=== PATIENT | female | born 1960 | race Caucasian/White ===

== ENCOUNTER 2020-03-16 13:28 | Emergency (ER) | payer OTHER, MEDICARE, SELFPAY ==
[2020-03-16] VITALS (7 sets, daily range): BP systolic 93–145; BP diastolic 70–85; PULSE 70–103; RESP 16–19; TEMP 35.5–37.2; O2SAT 98–100; BMI 19.6
--- NOTE | 2020-03-16 14:15 | EKG12_ITS ---
Test Reason : SOB Blood Pressure : / mmHG Vent. Rate : 079 BPM Atrial Rate : 079 BPM P-R Int : 158 ms QRS Dur : 082 ms QT Int : 352 ms P-R-T Axes : 067 055 053 degrees QTc Int : 403 ms Normal sinus rhythm Normal ECG Confirmed by GLORIA DALLAS, BRIAN ([id number]), editor city JACINDA KIDD ([id number]) on 03/18/2020 11:13:01 AM Referred By: HERB Confirmed By:BRIAN CASTRO MD
--- NOTE | 2020-03-16 14:16 | CT_ITS ---
STUDY: CTA CHEST REASON FOR EXAM: Female, 59 years old. SUSPECTED PE, SOB RADIATION DOSAGE (If Supplied By Facility): CTDIvol = ( 3.73 ) mGy, DLP = ( 116.65 ) mGycm TECHNIQUE: The examination was performed with the intravenous administration of IV 100mL Isovue-370. Post-processing of the angiographic images was performed, with multiplanar reformation and 3D reconstruction. Individualized dose optimization techniques were used for this CT. COMPARISON: None. FINDINGS: Normal enhancement of the main pulmonary artery and right and left pulmonary arteries. Normal enhancement of the bilateral peripheral pulmonary arteries. There is no demonstrated pulmonary embolism. Normal thoracic aorta and visualized great vessels. There is no demonstrated aortic dissection. Normal heart size. A small anterior pericardial effusion is present. Small calcified mediastinal and hilar lymph nodes are present. Normal visualized trachea and bronchi. The lungs are well expanded. Normal pulmonary parenchyma. No consolidation or pulmonary edema or pleural effusion. Normal pleura. Normal chest wall structures. There are degenerative changes of thoracic spine. Gastric bypass changes as well as stomach sports physical therapist/balloon noted. CT/CTA Chest W/WO Contrast IMPRESSION: 1. No demonstrated pulmonary embolism or arterial dissection. 2. No consolidation or pulmonary edema or pleural effusion. Electronically Signed: Josemanuel Ibrahim MD at 17:54 EST , Service support ,
[2020-03-16 14:43] LABS: Anion Gap 8 (5-15); BUN 16 mg/dL (7-18); BUN/Creat Ratio 8.6 RATIO (10-20); Calcium,Total 9.7 mg/dL (8.5-10.1); Chloride 106 mmol/L (98-107); Creatinine, Serum 1.85 mg/dL (0.55-1.02); EST Glomerular Filtration Rate 29 mL/min (>60); Est Glom Filt Rate - Afr Amer 36 mL/min (>60); Estimated Creatinine Clearance 26.21 ml/min; Glucose 105 mg/dL (74-106); Potassium 4.2 mmol/L (3.5-5.1); Sodium Level 140 mmol/L (136-145)
[2020-03-16 14:52] LABS: BNP,B-Type NATRIURETIC PEPTIDE 26.4 pg/mL (0-100)
--- NOTE | 2020-03-16 14:55 | RAD_ITS ---
STUDY: X-RAY CHEST REASON FOR EXAM: Female, 59 years old. Dyspnea on exertion, Hx pancreatic CA TECHNIQUE: PA and lateral views of the chest. COMPARISON: None. FINDINGS: EKG electrodes are seen. Hyperinflation. Calcified granulomas in the lingular segment of the left upper lobe. There is no demonstrated pleural abnormality. Normal size heart. Normal mediastinum and lars. Normal visualized pulmonary arteries. Normal visualized aortic arch and descending thoracic aorta. There are mild degenerative changes of the visualized thoracic spine. Normal visualized ribs, clavicles, and shoulders. Surgical clips are seen in the right upper quadrant. A stent is seen in the left upper quadrant. RAD/Chest PA and Lateral IMPRESSION: Hyperinflation. The lungs are clear. Electronically Signed: Hossein Costa MD at 15:28 EST , Service support ,
--- NOTE | 2020-03-16 15:47 | ED.DCSUM_ITS ---
History of Present Illness Chief Complaint: Shortness of Breath Informant: Patient, PCP - Patient's oncologist called and raise concern for pulmonary embolus Onset: Days Context: Sudden Onset Timing: Continuous Quality: Dyspnea with exertion Location: Respiratory Current Severity: Mild Maximum Severity: Moderate Worsened by: Activity Relieved by: Rest Associated Symptoms: No other symptoms Narrative: Patient is 59-year-old woman with history of pancreatic cancer who had surgery February 17 and developed a bowel obstruction requiring emergent surgery February 26. She presents because of dyspnea, dyspnea on exertion and chest pain with pleuritic component. She does not prior history of VTE. She denies infectious symptoms i.e. fever, chills night sweats. She denies runny nose, congestion, postnasal drainage or sore throat. She denies cough. She denies nausea, vomiting or diarrhea. She denies dysuria, frequency, urgency or hematuria. She does report swelling of her lower extremities. There is no discoloration or pain. Prior similar symptoms: Yes - VTE Recent Illness/Hospitalization: Yes - Pancreatic resection for cancer complicated by obstruction - Past Medical History (1) Pancreatic cancer Status: Acute (2) Bowel obstruction Status: Acute (3) History of venous thromboembolism Status: Acute Past Medical History - Allergies and Home Meds Allergies/Adverse Reactions: Allergies benzonatate [From Tessalon Perles] Allergy (Verified 03/16/20 13:31) Anaphylaxis lisinopril Allergy (Verified 03/16/20 13:31) Anaphylaxis Prior records reviewed: Yes Surgical History: - - Pancreatic resection, splenectomy and bowel resection Lives: Alone Smoking Status: Never smoker Alcohol: None Drugs: None Review of Systems General: Reports: Malaise, Weight loss. Denies: Chills, Fever, Sweats Eyes: Denies: Visual changes - bilaterally, Blurred Vision - bilaterally ENT: Denies: Bilateral ear pain, Rhinorrhea, Sore throat Cardiovascular: Reports: Chest pain. Denies: Palpitations, Heart racing Respiratory: Reports: Dyspnea, Dyspnea on exertion. Denies: Sputum, Orthopnea, Paroxysmal nocturnal dyspnea Gastrointestinal: Denies: Abdominal pain, Nausea, Vomiting, Diarrhea, Melena, Hematochezia Genitourinary: Denies: Dysuria, Hematuria, Frequency Musculoskeletal: Denies: Myalgias, Back pain, Extremity Pain Skin: Denies: Rash, Wounds Neurological: Denies: Headache, Parasthesia, Numbness Psych: Denies: Depression, Anxiety Endocrine: Denies: Polyuria, Polydipsia Hematologic: Denies: Easy bruising, Easy bleeding Allergy: Denies: Uticaria Physical Exam Vital Signs/Narrative: Vital Signs Temp Pulse Resp BP Pulse Ox 03/16/20 14:37 98.1 F 70 16 104/74 100 03/16/20 13:37 96 F L 103 H 16 102/70 100 03/16/20 13:31 96 F L 103 H 16 102/70 100 Inital Vital Signs reviewed: Yes General: Well nourished, Well developed, Obese, No Acute Distress Head: Normocephalic, Atraumatic Eyes: Perrl, EOMI. Negative for: Pale conjunctiva, Scleral icterus ENT: Moist mucous membranes, No rhinorrhea, TM's clear Neck: Supple, Nontender, No lymphadenopathy, No JVD Cardiovascular: Regular rate, Regular rhythm, No murmurs, Normal S1 Respiratory: No distress, CTA bilaterally, Chest nontender Abdomen: Soft, Nontender, Nondistended, Normal bowel sounds Back: Nontender, Normal Inspection Extremities: Nontender, Edema Skin: No rash, Pallor. Negative for: Cyanosis, Diaphoresis, Jaundice, No Trauma Neurological: Alert, Oriented x3, Cranial nerves II-XII grossly intact, Normal Strength Psychological: Normal affect Diagnostic/Tx/Re-eval Chest X-Ray - ED: 2 View, Read by ED Physician, Normal, Heart, Mediastinum, Bony Structures, No Acute Disease, Chronic Changes, - - No evidence of infiltrate, effusion on x-ray interpreted by me at 1436. Impressions Chest CTA 03/16/20 14:16 IMPRESSION: 1. No demonstrated pulmonary embolism or arterial dissection. 2. No consolidation or pulmonary edema or pleural effusion. Electronically Signed: Josemanuel Ibrahim MD at 17:54 EST , Service support , Chest X-Ray 03/16/20 14:55 IMPRESSION: Hyperinflation. The lungs are clear. Electronically Signed: Hossein Costa MD at 15:28 EST , Service support , 03/16/20 14:16 CTA Chest W/WO Contrast [CT] Stat 03/16/20 14:55 Chest PA and Lateral [RAD] Stat Laboratory Results 03/16/20 03/16/20 14:00 14:00 Sodium 140 Potassium 4.2 Chloride 106 Carbon Dioxide 26.0 Anion Gap 8 BUN 16 Creatinine 1.85 H Estim Creat Clear Calc 26.21 Est GFR (MDRD) Af Amer 36 L Est GFR (MDRD) Non-Af 29 L BUN/Creatinine Ratio 8.6 L Glucose 105 Calcium 9.7 Troponin I < 0.015 B-Natriuretic Peptide 26.4 - EKG Initial EKG Interpretation: Sinus Rhythm - Normal sinus rhythm with a ventricular to 79. UT interval is 158 ms. QRS duration 82 ms. QT duration 3 to 52 ms. [place] is normal. EKG is normal. - Medical Decision Making Patient presents with dyspnea. Chest x-ray reveals no obvious abnormality need to rule out pulmonary embolus. She is high pretest probability. Creatinine is elevated 1.85. This is higher than time of discharge. Her hemoglobin time discharge 11.4. Her hemoglobin today at Dr. Guan's office is 11.4. This would not explain her dyspnea. Need to rule out pulmonary embolus. Troponin was obtained and is normal. There is no evidence of heart failure. Suspect the dyspnea is due to deconditioning due to recent surgeries and hospitalization. ED Disposition - Plan for ED Patient: Disposition: Home or Assisted Living Diagnosis: Dyspnea on exertion, Pancreatic cancer, Recurrent intestinal obstruction Instructions: ED Dyspnea Referrals: Damian Hermosillo MD [Primary Care Provider] - As Needed Waylon Guan DO [STAFF PHYSICIAN] - Keep Ya appointment
== END 2020-03-16 18:15 | disposition home or self-care (01) ==
PROVIDERS: Emergency Provider Emergency Medicine; PCP Family Medicine
DX: R06.09 Other forms of dyspnea (principal); K56.609 Unspecified intestinal obstruction, unspecified as to partial versus complete obstruction; C25.9 Malignant neoplasm of pancreas, unspecified; E66.9 Obesity, unspecified; Z86.718 Personal history of other venous thrombosis and embolism
CPT/HCPCS: 71046; 71275; 80048; 83880; 84484; 93005; 96360; 96361; 99284; J7030; Q9967; A4216

== ENCOUNTER → 2021-02-17 08:41 | Outpatient (CLI) | payer OTHER, MEDICARE, SELFPAY ==
[2021-02-17 08:55] VITALS: BP 112/72; PULSE 82; RESP 16; TEMP 36.1; O2SAT 98; BMI 18.8
[2021-02-17] MEDS: 0.9% NaCl Peripheral Flush Adult/Peds IV ×2 (09:08→13:50)
[2021-02-17 09:23] VITALS: BP 113/74; PULSE 80; RESP 16; TEMP 36.1
[2021-02-17 10:23] VITALS: BP 141/84; PULSE 72; RESP 16; TEMP 36.2
[2021-02-17 10:56] VITALS: BP 139/86; PULSE 72; RESP 16; TEMP 36.2; O2SAT 99
[2021-02-17] MEDS: Furosemide 20 MG/2 ML VIAL IV (11:26)
[2021-02-17 12:04] VITALS: BP 136/88; PULSE 75; RESP 16; TEMP 36.3; O2SAT 98
[2021-02-17 13:01] VITALS: BP 146/87; PULSE 70; RESP 16; TEMP 36.3
== END ==
PROVIDERS: PCP Family Medicine; Referring Provider Internal Medicine Hematology & Oncology; Visit Provider Internal Medicine Hematology & Oncology
DX: Z51.89 Encounter for other specified aftercare (principal); C25.2 Malignant neoplasm of tail of pancreas
CPT/HCPCS: 36430; 86644; 86850; 86900; 86901; 86920; 86922; J7040; P9016; P9040; A4216; J1940

== ENCOUNTER 2021-03-17 11:24 | Outpatient (CLI) | payer BC, MEDICARE, SELFPAY ==
[2021-03-17] MEDS: 0.9% NaCl VAD Flush IV ×2 (11:53→14:29)
[2021-03-17 11:55] VITALS: BP 103/72; PULSE 98; RESP 16; TEMP 36.3; O2SAT 100; BMI 17.5
[2021-03-17 12:35] VITALS: BP 108/76; PULSE 87; RESP 16; TEMP 36.4; O2SAT 98
[2021-03-17 13:38] VITALS: BP 118/76; PULSE 80; RESP 16; TEMP 36.8; O2SAT 100
[2021-03-17 14:10] VITALS: BP 127/79; PULSE 80; RESP 16; TEMP 36.5; O2SAT 99
[2021-03-17] MEDS: Furosemide 20 MG/2 ML VIAL IV (14:25)
== END 2021-03-17 23:59 | disposition short-term general hospital (02) ==
PROVIDERS: PCP Family Medicine; Referring Provider Internal Medicine Hematology & Oncology; Visit Provider Internal Medicine Hematology & Oncology
DX: Z51.89 Encounter for other specified aftercare (principal); D64.81 Anemia due to antineoplastic chemotherapy
CPT/HCPCS: 36430; 86850; 86900; 86901; 86920; 86922; J7040; P9016; A4216; J1940

== ENCOUNTER 2021-04-15 09:12 | Outpatient (CLI) | payer BC, MEDICARE, SELFPAY ==
[2021-04-15 09:23] VITALS: BP 107/75; PULSE 93; RESP 16; TEMP 36.3; O2SAT 100
[2021-04-15 09:59] VITALS: BP 112/71; PULSE 89; RESP 16; TEMP 35.8; O2SAT 100
[2021-04-15 10:54] VITALS: BP 130/81; PULSE 82; RESP 16; TEMP 36.6
[2021-04-15 11:38] VITALS: BP 132/79; PULSE 73; RESP 16; TEMP 36.6
[2021-04-15] MEDS: Furosemide 20 MG/2 ML VIAL IV (11:58)
[2021-04-15 12:30] VITALS: BP 122/80; BP 136/80; PULSE 78; PULSE 85; RESP 16; TEMP 35.7; TEMP 35.8; O2SAT 100; O2SAT 99
[2021-04-15 13:30] VITALS: BP 136/78; PULSE 80; RESP 16; TEMP 36.6; O2SAT 99
== END 2021-04-15 23:59 | disposition home or self-care (01) ==
LOC: MEDOUTP 09:12
PROVIDERS: PCP Family Medicine; Referring Provider Internal Medicine Hematology & Oncology; Visit Provider Internal Medicine Hematology & Oncology
DX: Z51.89 Encounter for other specified aftercare (principal)
CPT/HCPCS: 36430; 86850; 86900; 86901; 86920; 86922; J7040; P9016; A4216; J1940

== ENCOUNTER 2021-04-19 12:13 | Inpatient (IN) | payer BC, MEDICARE, SELFPAY ==
[2021-04-19 12:13] VITALS: BP 114/79; PULSE 125; RESP 14; TEMP 36.1; O2SAT 98; BMI 17.2
--- NOTE | 2021-04-19 12:42 | EX.ED.DYSGE1 ---
HPI History of Present Illness Chief Complaint: General Illness Informant: patient and spouse/S.O. Onset/Context/Timing Onset: Days (3-4) Context: Gradual Onset Timing: Continuous Quality: malaise, feeling dehydrated Location: all over Current Severity: Moderate Maximum Severity: Moderate Worsened by: nothing Relieved by: nothing Associated Symptoms Associated Symptoms: poor appetite & po intake. nausea, dry heaves, mild nonbloody diarrhea. Narrative Narrative: Patient has pancreatic cancer, she had a remote Whipple/pancreatic surgery that involved part of her colon as well. She had some chemotherapy last year but then on reevaluation she had a metastasis show up on her abdominal wall so now she is about 3 weeks into more aggressive chemotherapy regimen. She is feeling very fatigued and malaised. She was seen in the infusion center last week and had 2 units of blood transfused. Her appetite is extremely poor and her fluid intake is admittedly poor, and she was sent here for fluids due to likely being dehydrated according to the patient. She denies any pain and denies any new symptoms. She has a port in her right upper arm. She does not have a PEG, colostomy, or any other hardware. [facility] Medical History (Updated 04/19/21 @ 17:[address] Elmo Gentile MD) Bowel obstruction History of venous thromboembolism Pancreatic cancer Home Medications insulin glargine [Lantus Solostar U-100 Insulin] 11 unit SUBCUT QHS PRN PRN 04/19/21 [History Last Taken Unknown] mirtazapine 15 mg PO QHS 04/19/21 [History Last Taken Unknown] oxycodone 5 mg PO Q4H PRN PRN 04/19/21 [History Last Taken Unknown] pantoprazole 40 mg PO DAILY 04/19/21 [History Last Taken Unknown] pravastatin 20 mg PO QHS 04/19/21 [History Last Taken Unknown] Allergy/AdvReac Type Severity Reaction Status Date / Time benzonatate Allergy Anaphylaxis Verified 04/19/21 12:15 [From Terrie Rollins] lisinopril Allergy Anaphylaxis Verified 04/19/21 12:15 Surgical History Hx of cholecystectomy Hx of gastric bypass Hx of hysterectomy Hx of tonsillectomy Social History Smoking Status: Never smoker ROS ROS ED Constitutional Constitutional ED: Reports fatigue and malaise; Denies chills or fever(s) Eyes Eyes: Denies change in vision or diplopia ENT ENT ED: Denies rhinorrhea or sore throat Cardiovascular Cardiovascular: Denies chest pain or palpitations Respiratory/Chest Respiratory/Chest: Denies cough or dyspnea Gastrointestinal Gastrointestinal: Reports diarrhea, nausea and vomiting; Denies abdominal pain Genitourinary Genitourinary ED: Denies dysuria or hematuria Musculoskeletal Musculoskeletal: Denies back pain or neck pain Integumentary Denies abscess or rash Neurologic Neurologic: Denies headache(s), paresthesias or weakness Psychiatric Psychiatric: Denies anxiety or suicidal thoughts EXAM Physical Exam Const Vital Signs: 04/19/21 12:13 04/19/21 12:37 04/19/21 13:21 Temperature 97.0 F L Temperature Source Temporal Pulse Rate 125 H 102 H Respiratory Rate 14 Respiratory Effort Normal Non-Labored Respiratory Pattern Normal Blood Pressure 114/79 120/81 H Blood Pressure Mean 90 94 Pulse Ox 98 99 Oxygen Delivery Method Room Air Room Air 04/19/21 15:05 04/19/21 17:07 Temperature Temperature Source Pulse Rate 66 Respiratory Rate 20 H Respiratory Effort Respiratory Pattern Blood Pressure 133/89 H 128/84 H Blood Pressure Mean 103 98 Pulse Ox 95 99 Oxygen Delivery Method Room Air Room Air Positive well nourished and well developed Constitutional Narrative: Malaised-appearing, NAD General Appearance ED: well developed and NAD HEENT Reports moist mucous membranes normocephalic and atraumatic Eyes PERRL and EOMs intact bilaterally Neck full ROM and supple Resp normal respiratory effort and clear to auscultation bilaterally Cardio regular rate, regular rhythm and no murmurs GI non-tender and non-distended Auscultation: normoactive bowel sounds Palpation: soft Back/Spine no CVA tenderness General Back: other FROM Extremity normal to inspection Extremity Narrative: Prominence of Mediport seen medial right upper arm, nontender no signs of infection or lesions on the skin overlying it General Extremety ED: Negative for edema, pulses abnormal or tenderness General Extremity: Negative for edema or pulses abnormal Neuro oriented x3, CN's II-XII intact bilaterally and no sensory deficits noted Sensorium / Orientation: awake and alert Motor Exam: strength 5/5 throughout Skin no rashes or lesions noted and no wounds MDM MDM MDM Narrative Medical decision making narrative: Labs show DAWOOD with mild hyperkalemia likely as a result. EKG showed no changes of hyperkalemia. She was given IV fluids 1.5 L total, and the BMP was repeated. It shows mild improvement of these numbers, her potassium came down to the normal range at 5.0. I discussed all this with her oncologist Dr. Guan, he states the infusion center is no availability today, and he does not think there is any availability tomorrow and request that we admit the patient for the dehydration and borderline uremia. Patient is amenable to that. Discussed with hospitalist. Lab Data Attestation: I reviewed the patient's lab results. Labs: Laboratory Results - last 24 hr 04/19/21 04/19/21 04/19/21 13:23 13:23 16:20 WBC 5.9 RBC 2.56 L Hgb 8.3 L Hct 25.2 L MCV 98.4 MCH 32.4 H MCHC 32.9 RDW Std Deviation 67.4 H RDW Coeff of Brittni 19.0 H Plt Count 180 MPV 10.5 Immature Gran % (Auto) 0.700 Neut % (Auto) 91.0 H Lymph % (Auto) 3.6 L [place] % (Auto) 3.7 Eos % (Auto) 0.3 Baso % (Auto) 0.7 Absolute Neuts (auto) 5.4 Absolute Lymphs (auto) 0.21 L Nucleated RBC % 2.9 Anisocytosis 1+ Macrocytosis 1+ [place] Bodies 1+ Sodium 138 140 Potassium 5.2 H 5.0 Chloride 113 H 117 H Carbon Dioxide 16.0 L 17.0 L Anion Gap 9 6 BUN 93 H 87 H Creatinine 2.39 H 2.19 H Estim Creat Clear Calc 17.48 19.07 Est GFR (MDRD) Af Amer 26 L 29 L Est GFR (MDRD) Non-Af 22 L 24 L BUN/Creatinine Ratio 38.9 H 39.7 H Glucose 219 H 203 H Calcium 8.2 L 7.8 L EKG Initial EKG: Attestation: I personally reviewed and interpreted this EKG as follows: Interpretation: Sinus Rhythm, No Acute Injury Pattern and Non-Specific ST Changes (Flattening T-waves) Discharge Plan Dx/Rx/DC Orders Clinical Impression: Acute kidney injury, Pancreatic cancer, Acute dehydration Disposition Disposition: Acute Care Hospital [facility]
[2021-04-19 13:21] VITALS: BP 120/81; PULSE 102; O2SAT 99
[2021-04-19] MEDS: Ondansetron 4 MG/2 ML Vial IV ×2 (13:22→22:14)
[2021-04-19] MEDS: 0.9% Normal Saline 1,000 ML 999 ML IV (13:22)
[2021-04-19 13:30] LABS: Absolute Lymphocyte Count 0.21 X10^3/uL (0.83-4.51); Absolute Neutrophil Count 5.4 X10^3/uL (2.0-7.7); Basophil# 0.04 X10^3/uL; Basophil% 0.7 % (0-1); Eosinophil# 0.02 X10^3/uL; Eosinophils% 0.3 % (0-5); Hematocrit 25.2 % (37-47); Hemoglobin 8.3 g/dL (12.0-15.0); Lymphocyte # 0.21 X10^3/ul (0.83-4.51); Lymphocyte % 3.6 % (19-41); Mean Corp Hgb Conc 32.9 g/dL (32-36); Mean Corpuscular Hgb 32.4 pg (27.0-32.0); Mean Corpuscular Volume 98.4 fL (81-99); Mean Platelet Vol. 10.5 fl (6.2-12.0); Monocyte# 0.22 X10^3/uL; Monocyte% 3.7 % (0-10); NRBC Flagged by Analyzer 2.9 % (0-5); Neutrophil # 5.38 X10^3/uL (2.7-7.7); POSITIVE DIFFERENTIAL YES; POSITIVE MORPHOLOGY YES; Platelet Count 180 K/mm3 (150-450); RBC Distribution Width SD 67.4 fl (35.1-43.9); Red Blood Count 2.56 M/mm3 (4.2-5.4); White Blood Count 5.9 K/mm3 (4.4-11.0)
[2021-04-19 13:40] LABS: Anion Gap 9 (5-15); BUN 93 mg/dL (7-18); BUN/Creat Ratio 38.9 RATIO (10-20); Calcium,Total 8.2 mg/dL (8.5-10.1); Chloride 113 mmol/L (98-107); Creatinine, Serum 2.39 mg/dL (0.55-1.02); EST Glomerular Filtration Rate 22 mL/min (>60); Est Glom Filt Rate - Afr Amer 26 mL/min (>60); Estimated Creatinine Clearance 17.48 ml/min; Glucose 219 mg/dL (74-106); Potassium 5.2 mmol/L (3.5-5.1); Sodium Level 138 mmol/L (136-145)
[2021-04-19 14:04] LABS: Differential Indicated SCAN CRITERIA MET
[2021-04-19 14:08] LABS: Howell-Jolly Body 1+
[2021-04-19 14:09] LABS: Anisocytosis 1+; Macrocytosis 1+
--- NOTE | 2021-04-19 14:28 | EKG12_ITS ---
Test Reason : GEN ILLNESS Blood Pressure : / mmHG Vent. Rate : 089 BPM Atrial Rate : 089 BPM P-R Int : 150 ms QRS Dur : 074 ms QT Int : 342 ms P-R-T Axes : 074 018 081 degrees QTc Int : 416 ms Normal sinus rhythm Low voltage QRS Nonspecific T wave abnormality Abnormal ECG Confirmed by DIOR DALLAS, CHRISTOFER ([id number]), assignment editor MARKEL GRIGGS ([id number]) on 04/22/2021 1:23:49 PM Referred By: RIMA Confirmed By:CHRISTOFER RADER MD
[2021-04-19 15:05] VITALS: BP 133/89; PULSE 66; RESP 20; O2SAT 95
[2021-04-19 16:39] LABS: Anion Gap 6 (5-15); BUN 87 mg/dL (7-18); BUN/Creat Ratio 39.7 RATIO (10-20); Calcium,Total 7.8 mg/dL (8.5-10.1); Chloride 117 mmol/L (98-107); Creatinine, Serum 2.19 mg/dL (0.55-1.02); EST Glomerular Filtration Rate 24 mL/min (>60); Est Glom Filt Rate - Afr Amer 29 mL/min (>60); Estimated Creatinine Clearance 19.07 ml/min; Glucose 203 mg/dL (74-106); Sodium Level 140 mmol/L (136-145)
[2021-04-19 17:07] VITALS: BP 128/84; O2SAT 99
[2021-04-19 17:36] VITALS: BP 128/84; PULSE 96; RESP 14; TEMP 36.6; O2SAT 98
--- NOTE | 2021-04-19 17:44 | HP.PCM.HOS_ITS ---
Documented by User: Carlee Quintana NP, RIBBING MACHINE OPERATOR-C 04/19/21 18:07 HPI - General HPI Narrative LUZ MARIA SAUCEDO, is a 60 F who presents to the emergency room due to weakness, nausea. She reports poor oral intake, decreased urine output and recent weight loss. Patient states she began a new treatment regimen for pancreatic cancer about 3 weeks ago and has had worsening fatigue and malaise since that time. She reports she is having difficulty keeping food down. She denies fever, chills. Denies shortness of breath. Denies diarrhea. Denies urinary symptoms. Patient states a few days ago she stood up from going to the bathroom when she felt dizzy and fell over. She denies injury during fall. She denies other falls at home. 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 [facility] Medical History Bowel obstruction Diabetes mellitus, type 2 History of venous thromboembolism Pancreatic cancer Home Medications insulin glargine [Lantus Solostar U-100 Insulin] 11 unit SUBCUT QHS PRN PRN 04/19/21 [History Last Taken Unknown] mirtazapine 15 mg PO QHS 04/19/21 [History Last Taken Unknown] oxycodone 5 mg PO Q4H PRN PRN 04/19/21 [History Last Taken Unknown] pantoprazole 40 mg PO DAILY 04/19/21 [History Last Taken Unknown] pravastatin 20 mg PO QHS 04/19/21 [History Last Taken Unknown] Allergy/AdvReac Type Severity Reaction Status Date / Time benzonatate Allergy Anaphylaxis Verified 04/19/21 12:15 [From Terrie Rollins] lisinopril Allergy Anaphylaxis Verified 04/19/21 12:15 Family History Father No cardiac disease Mother , unknown cause, suspected cancer Kidney disease Surgical History H/O splenectomy History of pancreatectomy Hx of cholecystectomy Hx of gastric bypass Hx of hysterectomy Hx of tonsillectomy Social History household members: spouse Smoking Status: Never smoker alcohol intake: never substance use type: does not use ROS Constitutional Constitutional: Reports change in weight, fatigue, malaise and weakness; Denies chills or fever(s) Cardiovascular Cardiovascular: Denies chest pain, edema, lightheadedness, palpitations or syncope Respiratory/Chest Respiratory/Chest: Denies cough, dyspnea, productive cough, shortness of breath at rest, shortness of breath with exertion or wheezing Gastrointestinal Gastrointestinal: Reports nausea and vomiting; Denies abdominal pain, constipation or diarrhea Genitourinary Genitourinary: Denies burning urination, difficulty urinating, dysuria, hematuria, urinary frequency, urinary incontinence or urinary urgency Musculoskeletal Musculoskeletal: Denies back pain, joint pain or muscle weakness Integumentary Integumentary: Denies erythema, lesions, rash or wounds Neurologic Neurologic: Reports dizziness; Denies abnormal speech, confusion, focal weakness, numbness, paresthesias, seizure-like activity or syncope Psychiatric Psychiatric: Denies anxiety or depression Hematologic/Lymphatic Hematologic/Lymphatic: Denies anemia, easy bleeding or easy bruising Allergic/Immunologic Allergic/Immunologic: Denies hives or asthma Vital Signs Vital Signs Vital Signs: 04/19/21 12:13 04/19/21 12:37 04/19/21 13:21 Temperature 97.0 F L Temperature Source Temporal Pulse Rate 125 H 102 H Respiratory Rate 14 Respiratory Effort Normal Non-Labored Respiratory Pattern Normal Blood Pressure 114/79 120/81 H Blood Pressure Mean 90 94 Pulse Ox 98 99 Oxygen Delivery Method Room Air Room Air 04/19/21 15:05 04/19/21 17:07 04/19/21 17:36 Temperature 98 F Temperature Source Temporal Pulse Rate 66 96 Respiratory Rate 20 H 14 Respiratory Effort Respiratory Pattern Blood Pressure 133/89 H 128/84 H 128/84 H Blood Pressure Mean 103 98 98 Pulse Ox 95 99 98 Oxygen Delivery Method Room Air Room Air Room Air Weight Weight: 100 lb Body Mass Index (BMI) 17.2 Physical Exam Const alert, oriented x3 and no apparent distress Orientation / Consciousness: awake, oriented to person, oriented to place and oriented to time Nutritional Appearance: cachectic HEENT normocephalic and moist oral mucous membranes Mouth: dry mucous membranes Eyes PERRL, EOMs intact bilaterally and conjunctivae normal Neck no lymphadenopathy Resp normal respiratory effort and clear to auscultation bilaterally Cardio regular rate, regular rhythm and no murmurs Peripheral Pulses: pulses 2+ throughout GI normal to inspection, nondistended, normoactive bowel sounds, non-tender and non-distended Extremity normal to inspection Skin no rashes or lesions noted Lesions: no lesions Rashes: no rashes Trauma: no lacerations or abrasions Neuro CN's II-XII intact bilaterally, no focal motor deficits, no sensory deficits noted and deep tendon reflexes 2+ bilaterally Psych mental status grossly normal and affect normal Results Lab / Micro Data Result Diagrams: 04/19/21 13:23 04/19/21 16:20 Labs: Laboratory Results - last 24 hr 04/19/21 13:23: WBC 5.9, RBC 2.56 L, Hgb 8.3 L, Hct 25.2 L, MCV 98.4, MCH 32.4 H , MCHC 32.9, RDW Std Deviation 67.4 H, RDW Coeff of Brittni 19.0 H, Plt Count 180, MPV 10.5, Immature Gran % (Auto) 0.700, Neut % (Auto) 91.0 H, Lymph % (Auto) 3.6 L, [place] % (Auto) 3.7, Eos % (Auto) 0.3, Baso % (Auto) 0.7, Absolute Neuts (auto) 5.4, Absolute Lymphs (auto) 0.21 L, Nucleated RBC % 2.9, Anisocytosis 1+, Macrocytosis 1+, [place] Bodies 1+ 04/19/21 13:23: Sodium 138, Potassium 5.2 H, Chloride 113 H, Carbon Dioxide 16.0 L, Anion Gap 9, BUN 93 H, Creatinine 2.39 H, Estim Creat Clear Calc 17.48, Est GFR (MDRD) Af Amer 26 L, Est GFR (MDRD) Non-Af 22 L, BUN/Creatinine Ratio 38.9 H , Glucose 219 H, Calcium 8.2 L 04/19/21 16:20: Sodium 140, Potassium 5.0, Chloride 117 H, Carbon Dioxide 17.0 L , Anion Gap 6, BUN 87 H, Creatinine 2.19 H, Estim Creat Clear Calc 19.07, Est GFR (MDRD) Af Amer 29 L, Est GFR (MDRD) Non-Af 24 L, BUN/Creatinine Ratio 39.7 H , Glucose 203 H, Calcium 7.8 L Assessment & Plan Assessment/Plan (1) Acute kidney injury: PLAN: 1. Acute kidney injury on chronic kidney disease stage IIIb-acute kidney injury secondary to nausea, vomiting, poor oral intake related to chemotherapy regimen. As needed antiemetics. Aggressive IV fluids. Trend BMP. 2. Weakness/debility/failure to thrive-PT/OT. Dietitian consult. 3. Severe protein calorie malnutrition-as evidenced by muscle and fat loss, cachectic appearance, recent weight loss and poor oral intake. Dietitian consult 4. Stage II adenocarcinoma of the tail of pancreas-follows with Dr. Guan. 5. Type 2 diabetes [id number] with sliding scale insulin. States she uses Lantus as needed only and has not needed insulin lately due to poor oral intake. 6. Hypertension-not on regimen, monitor blood pressure. 7. Hyperlipidemia-continue statin. 8. History of DVT-not on anticoagulation. Heparin for DVT prophylaxis. 9. Iron deficiency anemia-stable. 10. GERD-continue PPI. 11. Depression-on mirtazapine. DVT prophylaxis-Heparin subcu This patient was seen by MADELEINE Montalvo under the supervision of Dr. Krause. Time spent examining patient, reviewing data and subsequent management of care: 14 Minutes Documented by User: Dr. Sarkis Krause, 04/19/21 18:52 HPI - General General Date of Admission: 04/19/21 Date of Service: 04/19/21 Chief Complaint: Malaise and dizziness HPI Narrative This is a 48-year-old female presents with weakness, nausea and dizziness. Patient undergoing treatment for pancreatic cancer. She is unable to keep food. Presented here for further hydration. The emergency room physician spoke with Dr. Guan, of oncology, and states that he will have any infusion chairs at this time today nor tomorrow. He had recommended further hydration for the patient while she was here. In the emergency room, patient received saline, Zofran. [facility] Medical History Bowel obstruction Diabetes mellitus, type 2 History of venous thromboembolism Pancreatic cancer Home Medications insulin glargine [Lantus Solostar U-100 Insulin] 11 unit SUBCUT QHS PRN PRN 04/19/21 [History Last Taken Unknown] mirtazapine 15 mg PO QHS 04/19/21 [History Last Taken Unknown] oxycodone 5 mg PO Q4H PRN PRN 04/19/21 [History Last Taken Unknown] pantoprazole 40 mg PO DAILY 04/19/21 [History Last Taken Unknown] pravastatin 20 mg PO QHS 04/19/21 [History Last Taken Unknown] Allergy/AdvReac Type Severity Reaction Status Date / Time benzonatate Allergy Anaphylaxis Verified 04/19/21 12:15 [From Terrie Rollins] lisinopril Allergy Anaphylaxis Verified 04/19/21 12:15 Family History Father No cardiac disease Mother , unknown cause, suspected cancer Kidney disease Surgical History H/O splenectomy History of pancreatectomy Hx of cholecystectomy Hx of gastric bypass Hx of hysterectomy Hx of tonsillectomy Social History household members: spouse Smoking Status: Never smoker alcohol intake: never substance use type: does not use ROS ROS Narrative All review of systems were negative except as mentioned above in the history of present illness and the other review of systems. Physical Exam Const alert and oriented x3 Constitutional Narrative: Cachectic. Afebrile. General Appearance: cooperative Eyes Eyes Narrative: No icterus Resp normal respiratory effort, no retractions, no use of accessory muscles and clear to auscultation bilaterally Cardio regular rate, regular rhythm, S1 normal heart sound and S2 normal heart sound GI normal to inspection, nondistended, normoactive bowel sounds, soft to palpation, non-tender and non-distended Extremity normal to inspection, full ROM and no clubbing, cyanosis or edema Skin no rashes or lesions noted, no wounds, skin turgor normal and no jaundice Neuro oriented x3 Sensorium / Orientation: awake and alert Psych affect normal Results Lab / Micro Data Attestation: I reviewed the patient's lab results. Result Diagrams: 04/19/21 13:23 04/19/21 16:20 Assessment & Plan Assessment/Plan (1) Acute kidney injury: (2) Acute dehydration: (3) Pancreatic cancer: PLAN: Patient seen and examined independently. Data and vitals reviewed. I agree with the above note by the nurse practitioner. 1. Acute kidney injury Likely prerenal azotemia Baseline creatinine is around 1.8 IV fluids Avoid nephrotoxic agents 2. Debility and weakness Secondary dehydration and poor nutritional intake PT OT evaluate and treat 3. Severe protein calorie malnutrition Dietary consultation Consider PPI therapy if refractory 4. Pancreatic cancer Ongoing since 2019 Follow-up with Dr. Guan as outpatient Request records from Dr. Guan's office 5. VTE prophylaxis with subcu heparin 6. COVID-19 vaccination: Patient has been vaccinated for COVID-19. Charges/Coding Visit Charges Inpatient E&M: 84904 Init Hosp L2
[2021-04-19 18:21] LABS: Magnesium 2.4 mg/dL (1.6-2.6)
[2021-04-19 18:42] VITALS: BMI 18.1
[2021-04-19 18:48] VITALS: BP 116/84; PULSE 95; RESP 16; TEMP 36.6; O2SAT 99
[2021-04-19] MEDS: oxyCODONE 5 MG Tablet PO (19:25)
[2021-04-19] MEDS: 0.9% Normal Saline 1,000 ML 150 ML IV (19:30)
[2021-04-19] MEDS: Pravastatin 20 MG Tablet PO (22:04)
[2021-04-19] MEDS: Mirtazapine 15 MG Tablet PO (22:05)
[2021-04-19] MEDS: Zolpidem Tartrate 5 MG Tablet 10 MG PO (22:05)
[2021-04-19] MEDS: Acetaminophen 325 MG Tablet 650 MG PO (22:05)
[2021-04-19] MEDS: APIXABAN 5 MG TABLET PO (22:11)
[2021-04-19] MEDS: OLANZapine 10 MG Tablet PO (22:11)
[2021-04-19 22:26] LABS: Bedside Glucose 212 mg/dL (70-110)
[2021-04-19] MEDS: Insulin Lispro 100 UNIT/ML INSULN.PEN SC (22:34)
[2021-04-20] MEDS: 0.9% Normal Saline 1,000 ML 150 ML IV ×3 (01:55→14:36)
[2021-04-20 04:09] VITALS: BP 121/84; PULSE 108; RESP 16; TEMP 37.1; O2SAT 97
[2021-04-20 06:36] LABS: Bedside Glucose 129 mg/dL (70-110)
[2021-04-20 06:46] LABS: Anion Gap 7 (5-15); BUN 83 mg/dL (7-18); BUN/Creat Ratio 38.4 RATIO (10-20); Calcium,Total 7.9 mg/dL (8.5-10.1); Chloride 120 mmol/L (98-107); Creatinine, Serum 2.16 mg/dL (0.55-1.02); EST Glomerular Filtration Rate 25 mL/min (>60); Est Glom Filt Rate - Afr Amer 30 mL/min (>60); Estimated Creatinine Clearance 20.51 ml/min; Glucose 119 mg/dL (74-106); Potassium 4.4 mmol/L (3.5-5.1); Sodium Level 143 mmol/L (136-145)
[2021-04-20] MEDS: oxyCODONE 5 MG Tablet PO ×2 (07:57→20:31)
[2021-04-20] MEDS: Acetaminophen 325 MG Tablet 650 MG PO ×2 (07:57→20:31)
[2021-04-20 08:15] VITALS: BP 114/82; PULSE 116; RESP 18; TEMP 36.6; O2SAT 96
[2021-04-20] MEDS: APIXABAN 5 MG TABLET PO (09:56)
[2021-04-20] MEDS: Pantoprazole Sodium 40 MG Tablet PO (09:56)
--- NOTE | 2021-04-20 11:20 | CASEMGMT ---
NAJMA MAC Assessment: Face to Face with pt for initial transition planning/care coordination assessment. NAJMA MAC introduced self and role at [facility], pt voices understanding and consents to assessment. Pt is A/O x4 and answers all questions appropriately at this time. Pt sitting up in bed in no distress. Care providers, pharmacy, and demographics verified/updated. Admitting Dx: DAWOOD, debility, pancreatic ca PCP:[facility]: ben Guan Pharmacy: [facility] Insurance: [facility] [place] Prescription Benefit: yes LW/HPOA: Pt denies having a LW/DPOA and denies need for info regarding AD. LNOK: Jp Riggins, Living Arrangements: Pt lives with , her sister and boyfriend in a single story house with 3 steps to enter with a rail. Pt states her assists her with ADL's. Pt denies concerns at home. Transportation: Pt is able to drive but her transports her to medical appts. DME/HHC/SNF: Pt has a cane, walker, w/c, BGM with supplies as well as insulin with supplies. Pt states her assists her in ambulating. Pt has had [facility] in the past and denies SNF stays. Pt states no concerns with going home at time of dc. She states she is weaker than normal but at this time denies any need for therapy. Pt does currently have a referral to Palliative Care that will start next week. Pt states no further concerns/needs. CM to follow. Advised pt to ask CM if any further question/concerns/needs arise, voices understanding. Pt Goal: Home Plan: Home
[2021-04-20] MEDS: 0.9% Saline Lock 10 ML Syringe IV ×2 (11:28→17:10)
[2021-04-20] MEDS: Insulin Lispro 100 UNIT/ML INSULN.PEN SC ×2 (11:28→21:19)
[2021-04-20] MEDS: Morphine 2 MG/ML Syringe IV ×3 (11:28→21:23)
[2021-04-20 11:30] LABS: Bedside Glucose 243 mg/dL (70-110)
--- NOTE | 2021-04-20 13:26 | PN.HOSP_ITS ---
Documented by User: Carlee Quintana NP, CLINICAL CODER-C 04/20/21 13:35 Subjective Subjective Patient seen and examined. Complains of abdominal pain, nausea. Denies emesis. Feels generally week. Objective Data Objective Data Vital Signs: Vital Signs Temp Pulse Resp BP Pulse Ox 97.8 F 116 H 18 114/82 H 96 04/20/21 08:15 04/20/21 08:15 04/20/21 08:15 04/20/21 08:15 04/20/21 08:15 Oxygen Delivery Method Room Air Weight: 106 lb 0.677 oz Body Mass Index (BMI) 18.1 Intake & Output: Intake and Output for Last 24 Hours 04/18/21 04/19/21 04/20/21 23:59 23:59 23:59 Intake Total 1500 / 1500 1870.0 / 1870.0 Balance 1500 / 1500 1870.0 / 1870.0 Medical Nutrition Assessment Dietitian: Malnutrition Criteria Met Start: 04/20/21 12:13 Freq: Status: Active Protocol: Document 04/20/21 12:13 AG (Rec: 04/20/21 12:13 [id number]) Nutrition Malnutrition Evidence of Malnutrition Exists Yes Malnutrition (severe): Chronic Evidenced By Suboptimal Energy Intake ( Severe),Weight Loss (Severe), Physical Changes (Severe) Clinical Problem Chronic Disease or Condition Related Malnutrition Etiology severe, chronic malnutrition r /t inadequate energy intake w/ increased energy needs d/t cancer Signs/Symptoms as evidenced by estimated PO intake meeting<75% of estimated energy needs >3 months; severe muscle wasting/ fat loss evident per physical exam in temples, clavicle, orbital, and scapula areas; unintentional wt loss of 24#/ 18% wt loss <1 year; BMI 18.2 Status Active Problem Recommendation Dietitian Recommendations/Changes continue regular diet as tolerated; will change ONS to ensure enlive 120mL 4x/day w/ medpass d/t malnutrition. Will fortify foods when possible Lab / Micro Data Result Diagrams: 04/19/21 13:23 04/20/21 05:54 Labs: Laboratory Results - last 24 hr 04/19/21 13:23: WBC 5.9, RBC 2.56 L, Hgb 8.3 L, Hct 25.2 L, MCV 98.4, MCH 32.4 H , MCHC 32.9, RDW Std Deviation 67.4 H, RDW Coeff of Brittni 19.0 H, Plt Count 180, MPV 10.5, Immature Gran % (Auto) 0.700, Neut % (Auto) 91.0 H, Lymph % (Auto) 3.6 L, [place] % (Auto) 3.7, Eos % (Auto) 0.3, Baso % (Auto) 0.7, Absolute Neuts (auto) 5.4, Absolute Lymphs (auto) 0.21 L, Nucleated RBC % 2.9, Anisocytosis 1+, Macrocytosis 1+, [place] Bodies 1+ 04/19/21 13:23: Sodium 138, Potassium 5.2 H, Chloride 113 H, Carbon Dioxide 16.0 L, Anion Gap 9, BUN 93 H, Creatinine 2.39 H, Estim Creat Clear Calc 17.48, Est GFR (MDRD) Af Amer 26 L, Est GFR (MDRD) Non-Af 22 L, BUN/Creatinine Ratio 38.9 H , Glucose 219 H, Calcium 8.2 L 04/19/21 16:20: Sodium 140, Potassium 5.0, Chloride 117 H, Carbon Dioxide 17.0 L , Anion Gap 6, BUN 87 H, Creatinine 2.19 H, Estim Creat Clear Calc 19.07, Est GFR (MDRD) Af Amer 29 L, Est GFR (MDRD) Non-Af 24 L, BUN/Creatinine Ratio 39.7 H , Glucose 203 H, Calcium 7.8 L 04/19/21 16:20: Magnesium 2.4 04/19/21 22:18: POC Glucose 212 H 04/20/21 05:54: Sodium 143, Potassium 4.4, Chloride 120 H, Carbon Dioxide 16.0 L , Anion Gap 7, BUN 83 H, Creatinine 2.16 H, Estim Creat Clear Calc 20.51, Est GFR (MDRD) Af Amer 30 L, Est GFR (MDRD) Non-Af 25 L, BUN/Creatinine Ratio 38.4 H , Glucose 119 H, Calcium 7.9 L 04/20/21 06:32: POC Glucose 129 H 04/20/21 11:24: POC Glucose 243 H Physical Exam Const alert, oriented x3 and no apparent distress Orientation / Consciousness: awake, oriented to person, oriented to place and oriented to time Nutritional Appearance: cachectic HEENT normocephalic Mouth: dry mucous membranes Eyes PERRL, EOMs intact bilaterally and conjunctivae normal Neck no lymphadenopathy Resp normal respiratory effort and clear to auscultation bilaterally Cardio regular rate, regular rhythm and no murmurs Peripheral Pulses: pulses 2+ throughout GI Inspection: abdominal distention Auscultation: normoactive bowel sounds Palpation: tender Extremity normal to inspection Skin no rashes or lesions noted Lesions: no lesions Rashes: no rashes Trauma: no lacerations or abrasions Neuro CN's II-XII intact bilaterally, no focal motor deficits, no sensory deficits noted and deep tendon reflexes 2+ bilaterally Psych mental status grossly normal Mood & Affect: flat affect Assessment & Plan Assessment/Plan (1) Acute kidney injury: PLAN: 1. Acute kidney injury on chronic kidney disease stage IIIb-acute kidney injury secondary to nausea, vomiting, poor oral intake related to chemotherapy regimen. As needed antiemetics. Aggressive IV fluids. Trend BMP. 2. Weakness/debility/failure to thrive-PT/OT. Dietitian consult. 3. Severe protein calorie malnutrition-as evidenced by muscle and fat loss, cachectic appearance, recent weight loss and poor oral intake. Dietitian consult 4. Stage II adenocarcinoma of the tail of pancreas-follows with Dr. Guan. 5. Type 2 diabetes [id number]-[id number] with sliding scale insulin. 6. Hypertension-not on regimen, monitor blood pressure. 7. Hyperlipidemia-continue statin. 8. History of DVT-on Eliquis. 9. Iron deficiency anemia-stable. 10. GERD-continue PPI. 11. Depression-on mirtazapine. DVT prophylaxis-Eliquis This patient was seen by MADELEINE Montalvo under the supervision of Dr. Pat. Time spent examining patient, reviewing data and subsequent management of care: 11 Minutes Documented by User: Dr. Diane Pat MD 04/21/21 07:21 Objective Data Lab / Micro Data Result Diagrams: 04/19/21 13:23 04/20/21 05:54 Charges/Coding Addendum Addendum: This patient was seen in conjunction with Carlee Quintana NP. I have independently interviewed and examined the patient and reviewed pertinent historical, laboratory, and other data. I have reviewed her note and concur with her documentation 60-year-old female with past medical history of metastatic pancreatic CA, on chemotherapy who comes in with generalized weakness, poor p.o. intake and found to have acute kidney injury. Patient was seen and examined. Her was at the bedside. She complains of severe nausea and abdominal discomfort as well as abdominal distention. She admits to passing gas but has not passed any bowel movement since being admitted. She denied any fever or chills. She stated that she feels about the same as before she was admitted. Physical Exam: Gen: Appears chronically unwell, frail, not pale, not jaundiced CVS:HS I +II, regular, no murmurs RESP: Diminished at lung bases GI: Abdomen is distended/protuberant BS present and normal, soft, generalized tenderness, ascites. EXT:No edema Labs: WBC count is 5.9, hemoglobin 8.3, platelet count 220, sodium is 143 potassium 4.4, chloride 120, bicarbonate 16, BUN 83, creatinine 2.16. CT of the abdomen and pelvis show severe obstruction of the mid transverse colon at the site of surgery in the left upper quadrant, no evidence of perforation. Anasarca and small amount of ascites. ASSESSMENT: 1. DAWOOD on CKD stage IIIb 2. Acute on chronic debility 3. Severe protein calorie malnutrition 4. Stage IV CA of the pancreas 5. Type II DM 6. Hyperlipidemia 7. History of DVT 8. Iron deficiency anemia 9. Depression Plan: Continue on IV fluids, antiemetics, pain control Patient will be transferred to [facility] based on CT report for surgical evaluation. Time spent coordinating patient's care, discussing with subspecialty and nursinminutes Visit Charges Inpatient E&M: 91829 [facility] Hosp L3
--- NOTE | 2021-04-20 14:11 | CT_ITS ---
STUDY: CT CHEST, ABDOMEN T PELVIS WITHOUT CONTRAST REASON FOR EXAM: Female, 60 years old. Metastatic disease RADIATION DOSAGE (If Supplied By Facility): CTDIvol = ( 7.18 ) mGy, DLP = ( 658.16 ) mGycm TECHNIQUE: Transaxial imaging was performed without the administration of intravenous contrast material. Individualized dose optimization techniques were used for this CT. COMPARISON: 03/16/2020 FINDINGS: CHEST The lungs are normal. There is no demonstrated pleural abnormality. Normal heart and pericardium. Normal mediastinum. Normal hilar regions. Normal unenhanced pulmonary arteries. Normal aorta arch and descending thoracic aorta. Normal osseous structures. There is no demonstrated abnormality of the visualized upper abdomen. ABDOMEN The visualized lung bases are unremarkable. The visualized portions of the heart are within normal limits. Small amount of ascites surrounding the liver. Normal liver. There are surgical clips in the gallbladder fossa consistent with a prior cholecystectomy. Status post splenectomy. Status post distal pancreatectomy. Normal bilateral adrenal glands. Normal right kidney. Normal left kidney. Status post gastric bypass. Normal small intestine. Severe dilatation of the cecum, descending colon, and mid transverse colon with a transition point near the site of surgery in the left upper quadrant worrisome for obstruction. No pneumoperitoneum to suggest perforation. The appendix is visualized and appears normal. Normal abdominal aorta. Normal inferior vena cava. Normal retroperitoneum. Edema in the abdominal wall suggestive of anasarca. Normal osseous structures. PELVIS Normal urinary bladder. Normal visualized small intestine. Normal visualized colon. There is no pelvic fluid. There is no pelvic lymphadenopathy or mass lesion. Normal visualized pelvic arteries. Normal abdominal wall. Normal osseous structures. CT/CT Chest, Abd, Pelvis WO Cont IMPRESSION: 1. Normal CT of the chest. 2. Severe obstruction of the mid transverse colon near the site of surgery in the left upper quadrant. No evidence of perforation. 3. Anasarca and a small amount of ascites. Electronically Signed: Tomás Underwood MD at 17:20 EST ,
[2021-04-20 14:15] VITALS: BP 125/85; PULSE 118; RESP 18; TEMP 36.9; O2SAT 97
[2021-04-20 17:26] LABS: Bedside Glucose 144 mg/dL (70-110)
[2021-04-20 20:34] VITALS: BP 121/80; PULSE 108; RESP 18; TEMP 36.9; O2SAT 98
[2021-04-20] MEDS: Pravastatin 20 MG Tablet PO (21:17)
[2021-04-20] MEDS: Mirtazapine 15 MG Tablet PO (21:17)
[2021-04-20] MEDS: OLANZapine 10 MG Tablet PO (21:17)
[2021-04-20 21:25] LABS: Bedside Glucose 185 mg/dL (70-110)
--- NOTE | 2021-04-20 21:44 | NURSING ---
report called at [facility], spoke to Chrissie YAO.
--- NOTE | 2021-04-20 22:30 | NURSING ---
pt d/c via stretcher, pt stable.belongings sent w/ pt. 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
--- NOTE | 2021-04-21 08:25 | DS.PCM_ITS ---
Documented by User: Carlee Quintana NP, [employer]-C 04/21/21 08:36 Providers Date of Admission: 04/20/21 Date of Discharge: 04/21/21 Primary Care Physician: Dr. Damian Hermosillo MD Reason For Visit: DAWOOD, DEBILITY, PANCREATIC CA Diagnosis Discharge Diagnosis (1) Acute kidney injury: Status: Acute Code(s): N17.9 - Acute kidney failure, unspecified Medications at Discharge Home Medications apixaban [Eliquis] 5 mg PO BID 04/19/21 insulin glargine [Lantus Solostar U-100 Insulin] 11 unit SUBCUT QHS PRN PRN 04/19/21 [id number]-[id number] [Creon] 1 cap PO TIDCM 04/19/21 mirtazapine 15 mg PO QHS 04/19/21 olanzapine 10 mg PO QHS 04/19/21 ondansetron HCl 8 mg PO Q8H PRN 04/19/21 oxycodone 5 mg PO Q4H PRN PRN 04/19/21 pantoprazole 40 mg PO DAILY 04/19/21 pravastatin 20 mg PO QHS 04/19/21 zolpidem 10 mg PO QHS PRN 04/19/21 Hospital Course Summary of Care Provided Hospital Course: Patient is a 60 year old female admitted 04/19/21 due to weakness. 1. Acute kidney injury on chronic kidney disease stage IIIb-acute kidney injury secondary to nausea, vomiting, poor oral intake related to chemotherapy regimen. As needed antiemetics. Aggressive IV fluids. Trend BMP. 2. Weakness/debility/failure to thrive-PT/OT. Dietitian consult. 3. Severe protein calorie malnutrition-as evidenced by muscle and fat loss, cachectic appearance, recent weight loss and poor oral intake. Dietitian consulted during admission. 4. Metastatic pancreatic cancer-follows with Dr. Guan. CT of chest, abdomen, pelvis demonstrated severe obstruction of the mid transverse colon. Patient was transferred to [facility] under Dr. Mu Thacker for surgical evaluation. 5. Type 2 diabetes oalrtmce-Nuwk-Jweem with sliding scale insulin. 6. Hypertension-not on regimen, monitor blood pressure. 7. Hyperlipidemia-continue statin. 8. History of DVT-on Eliquis. 9. Iron deficiency anemia-stable. 10. GERD-continue PPI. 11. Depression-on mirtazapine. Physical Exam Const alert, oriented x3 and no apparent distress Orientation / Consciousness: awake, oriented to person, oriented to place and oriented to time Nutritional Appearance: cachectic HEENT normocephalic Mouth: dry mucous membranes Eyes PERRL, EOMs intact bilaterally and conjunctivae normal Neck no lymphadenopathy Resp normal respiratory effort and clear to auscultation bilaterally Cardio regular rate, regular rhythm and no murmurs Peripheral Pulses: pulses 2+ throughout GI Inspection: abdominal distention Auscultation: normoactive bowel sounds Palpation: tender Extremity normal to inspection Skin no rashes or lesions noted Lesions: no lesions Rashes: no rashes Trauma: no lacerations or abrasions Neuro CN's II-XII intact bilaterally, no focal motor deficits, no sensory deficits noted and deep tendon reflexes 2+ bilaterally Psych mental status grossly normal Mood & Affect: flat affect Patient seen and examined prior to discharge. Physical assessment as noted above. Patient transferred to [facility] for surgical evaluation as noted above. This patient was seen by MADELEINE Montalvo under the supervision of Dr. Pat. Weight / BMI Weight Weight: 106 lb 0.677 oz Body Mass Index (BMI) 18.1 ABG / Lab / Microbiology Data Result Diagrams: 04/19/21 13:23 04/20/21 05:54 Laboratory: Laboratory Results - last 24 hr 04/20/21 11:24: POC Glucose 243 H 04/20/21 16:58: POC Glucose 144 H 04/20/21 21:18: POC Glucose 185 H Radiography Diagnostic Testing: Radiology Impression Chest/Abdomen/Pelvis CT 04/20/21 14:11 IMPRESSION: 1. Normal CT of the chest. 2. Severe obstruction of the mid transverse colon near the site of surgery in the left upper quadrant. No evidence of perforation. 3. Anasarca and a small amount of ascites. Electronically Signed: Tomás Underwood MD at 17:20 EST , Meaningful Use Info Meaningful Use Diagnoses (Choose all that apply): None applicable Discharge Plan Admission Admit Date/Time: 04/20/21 09:58 Attending Provider: Diane Pat Primary Care Provider: Damian Hermosillo Discharge Orders/Prescriptions Prescriptions: No Action pantoprazole 40 mg tablet,delayed release (DR/EC) 40 mg PO DAILY RF: 0 pravastatin 20 mg tablet 20 mg PO QHS RF: 0 mirtazapine 15 mg tablet 15 mg PO QHS RF: 0 oxycodone 5 mg tablet 5 mg PO Q4H PRN PRN (Reason: Pain) RF: 0 Lantus Solostar U-100 Insulin 100 unit/mL (3 mL) insulin pen 11 unit SUBCUT QHS PRN PRN (Reason: BGL >200) RF: 0 ondansetron HCl 8 mg tablet 8 mg PO Q8H PRN (Reason: Nausea) RF: 0 olanzapine 10 mg tablet 10 mg PO QHS RF: 0 zolpidem 10 mg tablet 10 mg PO QHS PRN (Reason: Sleep) RF: 0 Creon 12,000-38,000 -60,000 unit capsule,delayed release(DR/EC) 1 cap PO TIDCM RF: 0 Eliquis 5 mg tablet 5 mg PO BID RF: 0 Referrals / Follow Up: Damian Hermosillo MD [Primary Care Provider] - Disposition Discharge Orders: Discharge Patient (Routine); Ordered 04/20/21 Ordered By: Dr. Karl Conner Documented by User: Dr. Diane Pat MD 04/21/21 12:59 Providers Date of Admission: 04/20/21 Reason For Visit: DAWOOD, DEBILITY, PANCREATIC CA Medications at Discharge Home Medications apixaban [Eliquis] 5 mg PO BID 04/19/21 insulin glargine [Lantus Solostar U-100 Insulin] 11 unit SUBCUT QHS PRN PRN [id number] [Creon] 1 cap PO TIDCM 04/19/21 mirtazapine 15 mg PO QHS 04/19/21 olanzapine 10 mg PO QHS 04/19/21 ondansetron HCl 8 mg PO Q8H PRN 04/19/21 oxycodone 5 mg PO Q4H PRN PRN 04/19/21 pantoprazole 40 mg PO DAILY 04/19/21 pravastatin 20 mg PO QHS 04/19/21 zolpidem 10 mg PO QHS PRN 04/19/21 ABG / Lab / Microbiology Data Result Diagrams: 04/19/21 13:23 04/20/21 05:54 Discharge Plan Admission Admit Date/Time: 04/20/21 09:58 Attending Provider: iDane Pat Primary Care Provider: Damian Hermosillo Discharge Orders/Prescriptions Prescriptions: No Action pantoprazole 40 mg tablet,delayed release (DR/EC) 40 mg PO DAILY RF: 0 pravastatin 20 mg tablet 20 mg PO QHS RF: 0 mirtazapine 15 mg tablet 15 mg PO QHS RF: 0 oxycodone 5 mg tablet 5 mg PO Q4H PRN PRN (Reason: Pain) RF: 0 Lantus Solostar U-100 Insulin 100 unit/mL (3 mL) insulin pen 11 unit SUBCUT QHS PRN PRN (Reason: BGL >200) RF: 0 ondansetron HCl 8 mg tablet 8 mg PO Q8H PRN (Reason: Nausea) RF: 0 olanzapine 10 mg tablet 10 mg PO QHS RF: 0 zolpidem 10 mg tablet 10 mg PO QHS PRN (Reason: Sleep) RF: 0 Creon 12,000-38,000 -60,000 unit capsule,delayed release(DR/EC) 1 cap PO TIDCM RF: 0 Eliquis 5 mg tablet 5 mg PO BID RF: 0 Referrals / Follow Up: Damian Hermosillo MD [Primary Care Provider] - Disposition Discharge Orders: Discharge Patient (Routine); Ordered 04/20/21 Ordered By: Dr. Karl Conner Charges/Coding Addendum Addendum: This patient was seen in conjunction with Carlee Quintana NP. I have independently interviewed and examined the patient and reviewed pertinent historical, laboratory, and other data. I have reviewed her note and concur with her documentation 60-year-old female with past medical history of metastatic pancreatic CA, on chemotherapy who comes in with generalized weakness, poor p.o. intake and found to have acute kidney injury. During this hospital stay, patient complained of severe nausea, abdominal discomfort and distention. Patient's CT of the abdomen and pelvis show severe obstruction of the mid transverse colon at the site of surgery in the left upper quadrant, no evidence of perforation. Anasarca and small amount of ascites. Patient was transferred to [facility]. Physical Exam: Gen: Appears chronically unwell, frail, not pale, not jaundiced CVS:HS I +II, regular, no murmurs RESP: Diminished at lung bases GI: Abdomen is distended/protuberant BS present and normal, soft, generalized tenderness, ascites. EXT:No edema Time spent coordinating patient's care, discussing with subspecialty and nursing, coordinating transfer: 45 minutes Visit Charges Inpatient E&M: [id number] Disch Hosp
== END 2021-04-20 22:25 | disposition short-term general hospital (02) | DRG 682 ==
LOC: ED 17:23 → MS3 18:11
PROVIDERS: Nurse Practitioner Family; Emergency Provider Emergency Medicine; PCP Family Medicine; Visit Provider Internal Medicine
DX: N17.9 Acute kidney failure, unspecified (principal); E43 Unspecified severe protein-calorie malnutrition; K56.609 Unspecified intestinal obstruction, unspecified as to partial versus complete obstruction; C25.9 Malignant neoplasm of pancreas, unspecified; R62.7 Adult failure to thrive; E11.22 Type 2 diabetes mellitus with diabetic chronic kidney disease; D50.9 Iron deficiency anemia, unspecified; Z79.4 Long term (current) use of insulin; N18.32 Chronic kidney disease, stage 3b; E86.0 Dehydration; E87.5 Hyperkalemia; K21.9 Gastro-esophageal reflux disease without esophagitis; I12.9 Hypertensive chronic kidney disease with stage 1 through stage 4 chronic kidney disease, or unspecified chronic kidney disease; E78.5 Hyperlipidemia, unspecified; Z95.828 Presence of other vascular implants and grafts; F32.A Depression, unspecified; T45.1X5A Adverse effect of antineoplastic and immunosuppressive drugs, initial encounter; Z86.718 Personal history of other venous thrombosis and embolism
CPT/HCPCS: 71250; 74176; 80048; 82652; 82962; 83735; 85025; 93005; 97162; 97165; 97802; 99283; J7030; J7040; A4216; J2405